=== PATIENT | female | born 1960 | race Caucasian/White ===

== ENCOUNTER 2017-05-26 04:32 | Observation (INO) | payer MEDICARE, OTHER ==
--- NOTE | 2017-05-26 04:40 | ED Physician Documentation ---
PD HPI NVD - Stated complaint Stated Complaint: VOMITING,DIARRHEA - History obtained from History obtained from: Patient - History of Present Illness Timing - onset: How many weeks ago (2 weeks ago (05/12)) Timing - duration: Weeks Timing - details: Gradual onset, Still present, Waxing and waning Pain level max: 6 Pain level now: 2 Associated symptoms: Abdominal pain (waxing and waning cramping abdominal pain, mild at the time of this H+P). No: Fever Contributing factors: Travel. No: Recent antibiotics Improved by: Other (no ameliorating factors) Worsened by: Eating Similar symptoms before: No diagnosis Recently seen: Clinic (evaluated by PMD earlier this week (few days ago; see below)) - Additonal information Additional information: patient recently returned from a three-week trip to [place]. 2 weeks ago , while still on her trip, she developed diarrhea associated with abdominal cramping; this gradually but steadily worsened. she had mild bouts of nausea shortly before flying back home which was controlled with zofran and subsequently resolved until tonight. She saw PMD earlier this week for the ongoing diarrhea and abdominal cramping. Testing included hepatitis A (result was negative), and stool sample (results pending). She presents at this time due to sudden onset of severe nausea and vomiting since 10 PM. She did not try the zofran because she has been unable to keep even sips of liquids down. She has a generalized headache and feels generalized weakness. She continues to have frequent liquid stools and abdominal cramping Review of Systems Constitutional: denies: Fever, Chills, Sweats Eyes: reports: Reviewed and negative Ears: reports: Reviewed and negative Nose: reports: Reviewed and negative Throat: reports: Reviewed and negative Cardiac: reports: Reviewed and negative Respiratory: reports: Reviewed and negative GI: reports: Abdominal Pain, Nausea, Vomiting, Diarrhea. denies: Abdominal Swelling, Constipation, Hematemesis, Bloody / black stool : denies: Dysuria, Frequency Skin: reports: Reviewed and negative Musculoskeletal: reports: Reviewed and negative Neurologic: reports: Generalized weakness, Headache. denies: Focal weakness, Numbness PD PAST MEDICAL HISTORY - Past Medical History Past Medical History: Yes Cardiovascular: High cholesterol - Past Surgical History Past Surgical History: Yes - Allergies Allergies/Adverse Reactions: Allergies Allergy/AdvReac Type Severity Reaction Status Date / Time domperidone AdvReac Nausea Verified 05/26/17 04:46 dopamine AdvReac Nausea Verified 05/26/17 04:47 methylphenidate AdvReac DEPRESSION Verified 05/26/17 04:49 [From Ritalin] metoclopramide [From Reglan] AdvReac DEPRESSION Verified 05/26/17 04:49 modafinil [From Provigil] AdvReac Unknown Verified 05/26/17 04:48 prochlorperazine AdvReac Unknown Verified 05/26/17 04:49 [From Compazine] topiramate [From Topamax] AdvReac Nausea Verified 05/26/17 04:47 - Living Situation Living Arrangement: reports: At home - Social History Does the pt smoke?: No PD ED PE NORMAL - Vitals Vital signs reviewed: Yes - General General: Alert and oriented X 3, Well developed/nourished, Other (marked generalized tremulousness (patient says this is not a new problem)) - HEENT HEENT: Other (dry mucous membranes) - Neck Neck: Supple, no meningeal sign - Cardiac Cardiac: No murmur, No gallop, No rub - Respiratory Respiratory: No respiratory distress, Clear bilaterally - Abdomen Abdomen: Soft, Non tender, Non distended, Other (hyperactive bowel sounds) - Back Back: No CVA TTP - Derm Derm: Normal color, Warm and dry - Extremities Extremities: No edema - Neuro Neuro: Alert and oriented X 3 PD ED PE EXPANDED - Cardiac Cardiac: Tachy, Regular Rhythm Results - Vitals Vitals: Vital Signs - 24 hr 05/26/17 05/26/17 05/26/17 04:40 05:52 07:37 Temperature 36.4 C L 36.9 C Heart Rate 144 H 99 105 H Respiratory 24 18 15 Rate Blood Pressure 124/99 H 113/69 O2 Saturation 98 97 100 Oxygen O2 Source Room air - Labs Labs: Laboratory Tests 05/26/17 05/26/17 05/26/17 04:49 04:49 05:30 WBC 17.2 H RBC 4.26 Hgb 13.7 Hct 39.7 MCV 93.2 MCH 32.2 H MCHC 34.6 RDW 12.2 Plt Count 389 MPV 8.2 Neut # 16.1 H Lymph # 0.5 L Schuyler # 0.6 Eos # 0.1 Baso # 0.0 Absolute Nucleated RBC 0.01 Nucleated RBC % 0.0 Sodium 136 Potassium 3.3 L Chloride 102 Carbon Dioxide 22 Anion Gap 12.0 BUN 8 Creatinine 0.9 Estimated GFR (MDRD) 64 L Glucose 124 H Calcium 8.8 Total Bilirubin 0.6 AST 30 ALT 15 Alkaline Phosphatase 89 Total Protein 7.8 Albumin 4.1 Globulin 3.7 Albumin/Globulin Ratio 1.1 Lipase 53 H Urine Color YELLOW Urine Clarity CLEAR Urine pH 8.5 H Ur Specific [place] 1.010 Urine Protein NEGATIVE Urine Glucose (UA) NEGATIVE Urine Ketones 40 H Urine Occult Blood NEGATIVE Urine Nitrite NEGATIVE Urine Bilirubin NEGATIVE Urine Urobilinogen 0.2 (NORMAL) Ur Leukocyte Esterase NEGATIVE Ur Microscopic Review NOT INDICATED Urine Culture Comments NOT INDICATED PD MEDICAL DECISION MAKING - ED course Complexity details: reviewed results, re-evaluated patient, considered differential, d/w patient ED course: reevaluated multiple times during ED stay; her tremulousness improved dramatically early in her stay (again, this is not a new problem for her and she has had extensive w/u in the past for this). She appeared more comfortable after IV fluids and zofran, and she reported feeling better. However, she continued to have severe nausea and felt she was about to vomit each time I reevaluated her, including after a second liter of IV fluids and second dose of zofran. She was able to take ice chips and one tablet of lomotil, but she also continued to have frequent, loose, watery stools throughout ED stay. She likely would not be able to stay adequately hydrated if sent home, based on ongoing lower GI loses and inadequate PO intake due to ongoing nausea, and thus admitted for further treatment. Her abdominal exam remained benign during ED stay. Her allergies/adverse reaction list includes reglan and compazine. Departure - Departure Disposition: ED Place in Observation Clinical Impression: Gastroenteritis Condition: Stable Discharge Date/Time: 05/26/17 08:53
[2017-05-26] MEDS ORDERED: ONDANSETRON 4 MG/2 ML VIAL IVP STA ×2 (05:02→06:43)
[2017-05-26] MEDS ORDERED: SODIUM CHLORIDE 0.9% 1,000 ML IV STA ×2 (05:02→06:43)
[2017-05-26 05:13] LABS: BASOPHILS % (AUTO) 0.1 %; EOSINOPHILS # (AUTO) 0.1 10^3/uL (0.0-0.7); EOSINOPHILS % (AUTO) 0.5 %; HGB - HEMOGLOBIN 13.7 g/dL (12.0-16.0); LYMPHOCYTES # (AUTO) 0.5 10^3/uL (1.5-3.5); LYMPHOCYTES % (AUTO) 2.7 %; MEAN CORPUSCULAR HEMOGLOBIN 32.2 pg (27.0-31.0); MEAN CORPUSCULAR HGB CONC 34.6 g/dL (32.0-36.0); MEAN CORPUSCULAR VOLUME 93.2 fL (81.0-99.0); MEAN PLATELET VOLUME 8.2 fL (7.9-10.8); MONOCYTES # (AUTO) 0.6 10^3/uL (0.0-1.0); MONOCYTES % (AUTO) 3.5 %; NEUTROPHILS # (AUTO) 16.1 10^3/uL (1.5-6.6); NEUTROPHILS % (AUTO) 93.2 %; PLT - PLATELET COUNT 389 10^3/uL (130-450); RED BLOOD COUNT 4.26 10^6/uL (4.20-5.40); RED CELL DISTRIBUTION WIDTH 12.2 % (12.0-15.0); WHITE BLOOD COUNT 17.2 x10^3/uL (4.8-10.8)
[2017-05-26 05:33] LABS: ALBUMIN 4.1 g/dL (3.2-5.5); ALBUMIN/GLOBULIN RATIO 1.1 (1.0-2.2); BILIRUBIN,TOTAL 0.6 mg/dL (0.2-1.0); CALCIUM 8.8 mg/dL (8.5-10.3); CREATININE 0.9 mg/dL (0.4-1.0); TOTAL PROTEIN 7.8 g/dL (6.7-8.2)
[2017-05-26 05:40] LABS: BILIRUBIN,URINE NEGATIVE (NEGATIVE); GLUCOSE, URINE (UA) NEGATIVE (NEGATIVE); KETONES,URINE (UA) 40 mg/dL (NEGATIVE); LEUKOCYTE ESTERASE, URINE NEGATIVE (NEGATIVE); NITRITE,URINE NEGATIVE (NEGATIVE); OCCULT BLOOD,URINE NEGATIVE (NEGATIVE); PH,URINE 8.5 PH (5.0-7.5); PROTEIN,URINE NEGATIVE (NEGATIVE); UROBILINOGEN,URINE 0.2 (NORMAL) E.U./dL (NORMAL)
[2017-05-26 05:44] LABS: CLARITY,URINE CLEAR (CLEAR)
[2017-05-26] MEDS ORDERED: DIPHENOX/ATROPINE 2.5/0.025 MG TABLET PO STA (06:43)
[2017-05-26] MEDS ORDERED: SODIUM CHLORIDE FLUSH 0.9% 10 ML SYRINGE IVP PRN (08:06)
[2017-05-26] MEDS ORDERED: ONDANSETRON ODT 4 MG TABLET TL PRN (08:06)
[2017-05-26] MEDS ORDERED: DIPHENOX/ATROPINE 2.5/0.025 MG TABLET PO PRN (08:08)
[2017-05-26] MEDS ORDERED: POLYETHYLENE GLYCOL 3350 17 GM PACKET PO SCH (09:00)
[2017-05-26] MEDS: PANTOPRAZOLE 40 MG VIAL IVP SCH ×2 (09:37→16:05)
[2017-05-26] MEDS: DEXTROSE 5%-0.9% NACL 1,000 ML IV SCH ×2 (09:37→19:13)
[2017-05-26] MEDS ORDERED: CHOLESTYRAMINE 4 GM PACKET PO SCH (11:00)
[2017-05-26] MEDS: ONDANSETRON 4 MG/2 ML VIAL IVP PRN ×2 (13:10→23:50)
[2017-05-26] MEDS: ACETAMINOPHEN 325 MG TABLET PO PRN ×2 (13:10→23:49)
[2017-05-26] MEDS: SODIUM CHLORIDE FLUSH 0.9% 10 ML SYRINGE IVP SCH (16:05)
[2017-05-26] MEDS: oxyCODONE 5 MG TABLET PO PRN ×2 (16:05→19:33)
[2017-05-26] MEDS ORDERED: LIDOCAINE PATCH 5% TOP PRN (16:17)
[2017-05-26] MEDS ORDERED: PROMETHAZINE INJ 25 MG in SODIUM CHLORIDE 0.9% 50 ML IV PRN (16:17)
[2017-05-26] MEDS: CYCLOBENZAPRINE 10 MG TABLET PO SCH ×2 (16:44→21:11)
[2017-05-26] MEDS ORDERED: ACETAMINOPHEN 1,000 MG/100 ML 100 ML IV PRN (19:12)
[2017-05-26] MEDS ORDERED: clonazePAM 0.5 MG TABLET PO SCH (22:00)
[2017-05-26] MEDS ORDERED: PRIMIDONE 50 MG TABLET PO SCH (22:00)
[2017-05-26] MEDS ORDERED: buPROPion SR 100 MG TABLET PO SCH (22:00)
[2017-05-27] MEDS: SODIUM CHLORIDE FLUSH 0.9% 10 ML SYRINGE IVP SCH ×2 (06:02→06:12)
[2017-05-27] MEDS: PANTOPRAZOLE 40 MG VIAL IVP SCH (06:12)
[2017-05-27] MEDS: ONDANSETRON 4 MG/2 ML VIAL IVP PRN (06:12)
[2017-05-27] MEDS: DEXTROSE 5%-0.9% NACL 1,000 ML IV SCH (06:13)
[2017-05-27] MEDS: ACETAMINOPHEN 325 MG TABLET PO PRN (06:13)
--- NOTE | 2017-05-27 09:04 | Discharge Plan ---
Discharge Plan Disposition: 01 Home, Self Care Condition: Stable Diet: Regular Activity Restrictions: Activity as Tolerated Shower Restrictions: No Driving Restrictions: No Additional Instructions or Follow Up instructions: You were placed in observation here at [facility] because of intractable nausea and vomiting with severe diarrhea. Your history is that of recent travel to [place] and we do believe you have traveler's diarrhea. It has been going on for over 2 weeks, if not 3 weeks, and you were dehydrated, weak, and having severe abdominal cramping. Nausea and vomitting had been present for a week and was nonstop since the night before beeing seen in the ER here. Our stool study shows you to be negative for Clostridium difficile. After 24 hours of stay, you have not had any further episodes of vomiting. Your nausea is now completely gone. And you only had 1 bowel movement while here. You have tolerated a regular breakfast. We feel you are stable to return to home. You already have Zofran tablets at home and do not need a new prescription for those. Please follow-up with your primary care provider, Carter Franklin MD. You can do that in the next 1-2 weeks. No Smoking: If you smoke, Please STOP! Call for help. Follow-up with: Carter Franklin MD [Other]
[2017-05-27 09:43] VITALS: BP 110/65
[2017-05-27] MEDS ORDERED: DULoxetine 30 MG CAPSULE PO SCH (10:00)
--- NOTE | 2017-05-28 09:30 | HISTORY & PHYSICAL EXAMINATION ---
DATE OF SERVICE: 05/26/2017 Physician: Olga Plummer MD PRIMARY CARE PHYSICIAN: Carter Franklin MD, Primary Care Clinic - [facility]; FAX number ([phone]); office number ([phone]). ADMITTING PROVIDER: Olga Plummer MD CHIEF COMPLAINT: Intractable nausea and vomiting, associated with diarrhea. HISTORY OF PRESENT ILLNESS: The patient is a 57-year-old female who has been living on [facility] since approximately May 2007. She gets all of her primary care at [facility] because of very complicated and rare disease status. She has an essential tremor that has been getting gradually worse. Initially, it presented in the right jaw and has now progressed to the right side of her body and now on the left side of her body. Between the tremors, fibromyalgia, and chronic arthritis pain, she is physically diminished with regard to activities of daily living. However, she gets quite a bit of help in that she lives with 2 sisters and her mom. She is the "brains of the operation" in that she does all of the bookkeeping, household planning, organizing of household repairs while her sisters do the brunt of the physical labor, including gardening, cleaning, etc. She went to [place] 3 weeks ago. A week into the vacation, she developed watery diarrhea. It was daily and several times a day but no fever, chills, blood in her stool. There was no abdominal pain, and she was able to eat. This went on for 2 more weeks as the vacation was a total of 3 weeks long. The day before she returned back to the [place], she started getting light nausea. By the time she landed, the nausea had progressed to nausea and vomiting. The diarrhea got worse, and it is associated with severe abdominal cramping. In between bowel movements, she is pain-free, but she can feel an urge to defecate coming. The cramping is intense. She breaks out into a sweat, and the intractable nausea and vomiting is continued. She was seen by her primary care provider, and stool studies were done. These were done at . I have tried calling medical records, and they say that they have no stool studies for her in the last week. PCP did do some blood work on her, and she is hepatitis A negative. This morning, between the cramping and the nausea and vomiting that was nonstop starting at 10 o'clock last night, she could not take it anymore. She was brought to the emergency room where Dr. Cheema has given her 2 liters of saline, Zofran, and one Lomotil. It has helped somewhat, but every time he has gone in to reevaluate her, she is holding that "emesis blue bag" in her face. He feels that she cannot go home yet and would need at least an observation stay to control her symptomatology. PAST MEDICAL HISTORY 1. Chronic pain syndrome. She last worked in February 2006. 2. Fibromyalgia. 3. Essential tremors that have been progressive and getting worse. She does Botox especially for the right jaw tremors. 4. G3, P3, all vaginal deliveries. 5. 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 She ended up undergoing Gamma Knife resection. 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 In August 2016, she had a sudden inability to read one day. She was trying to follow a recipe for upside-down pineapple cake and just could not do it. As the day progressed, she started developing left facial droop. Final diagnosis was recurrence of the paraganglioma. She is currently being evaluated to see if she is a candidate for surgical resection again. 7. Status post cholecystectomy. 8. 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 ALLERGIES SHE IS ALLERGIC TO: 1, SINEMET, WHICH CAUSES NAUSEA. 2. DOMPERIDONE CAUSES NAUSEA. 3. TOPAMAX CAUSES NAUSEA. 4. RITALIN CAUSES DEPRESSION. 5. REGLAN CAUSES DEPRESSION. 6. PROVIGIL, SHE DOES NOT LIKE. 7. COMPAZINE, SHE DOES NOT LIKE. MEDICATIONS 1. Aspirin 81 mg a day. 2. Atorvastatin 40 mg a day. 3. Bupropion hydrochloride sustained release 100 mg a day. 4. Clonazepam 1 mg b.i.d. 5. Flexeril 10 mg twice a day. 6. Restasis 1 drop each eye daily. 7. Cymbalta 60 mg daily. 8. Lidoderm patch 1 topically daily. 9. Prilosec 20 mg daily. 10. Primidone 125 mg twice a day. 11. Metamucil 1 packet daily. SOCIAL HISTORY: She was born in [place] and had most of her adult life there. 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. 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 She finished her career with that job, and she loved it. She was visiting her sister in [place], [place], in 2007 and loved [place]. Eventually, she and her sisters and their mom ended up on [facility] in May 2007. She subsequently her because of alcohol abuse issues on his part. She has been on disability because of her chronic pain syndrome and tremors since 2005. She has never smoked, rarely drinks. Two of her children are in [place], and one son is in [place]. She occasionally uses cannabis. She has no history of cocaine, heroin, LSD, methamphetamine abuse. She and her sisters live with their mom in the same house. One sister does live down the road 7 minutes away. As a family unit, they are very supportive. Each person is responsible for certain aspects of household upkeep. As already stated, the patient is "the brains of the operation." FAMILY HISTORY: Mom is 87 and healthy. She has had a stroke in the past, but overall she is doing very well. Dad of COPD complications at the age of 75. Three sisters. One has an essential tremor, but all of them are healthy. Her 3 children are healthy, except 2 have essential tremor. One aunt has tremor, 2 cousins have tremor, and a second cousin has tremors. REVIEW OF SYSTEMS CONSTITUTIONAL: She has no constitutional complaints of unexpected weight changes, fevers, sweats, etc. HEENT: She wears glasses but has no history of glaucoma or cataracts. Hearing is intact. Occasionally, she has been having some swallowing and choking problems, and they wonder if it is related to her tremors. PULMONARY: Denies coughing, wheezing, chest pain, congestion, decreased endurance. CARDIAC: Denies chest pain, edema, orthopnea. GI: Occasionally constipated but the diarrhea as above. : None. No incontinence. No dysuria. No hematuria. MUSCULOSKELETAL: Diffuse myalgias and arthralgias from her arthritis, especially in her hands, as well as fibromyalgia. No change in disease status. SKIN: Denies rashes, new moles, new lesions. PSYCHIATRIC: Depression and anxiety are a daily part of her life. She worries about the future, especially with this new diagnosis of the paraganglioma, but more than anything else, she worries about her children's future. The paraganglioma is associated with a certain genetic defect, and she is worried that her children will have inherited it and she worries about them. 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 No history of seizures, syncope. Memory has been good in spite of her body strength being bad. PHYSICAL EXAMINATION VITAL SIGNS: On examination, she is seen in her room after being transferred there from the emergency room. Temperature is 36.5. Pulse is 95, blood pressure 117/74, respirations 16, and 96% on room air. When she presented to the emergency room, she was mildly hypothermic at 36.4, a heart rate of 144, and a blood pressure of 124/99. GENERAL: She is a pleasant middle-aged female, wearing glasses, well-nourished , lying quietly in her bed, but during the exam definitely overcome with waves of nausea, causing her to reach for the blue emesis bag. HEAD AND NECK: Unremarkable, other than the glasses. Pupils are reactive. She has very dry lips that are cracked, oral mucosa that is quite dry and parched. She is constantly trying to attempt to lick her lips, but there is no saliva present. Speech is slightly hoarse. She says that if she talks for too long, her voice will break and it comes and goes and this is related to the tremor. Neck is supple. No meningismus. No goiter. No bruits. She has some deformity of the left side of her head from previous surgical resection or treatment. LUNGS: Clear to auscultation and percussion. HEART: PMI is normally placed with a regular rate and rhythm. No murmur. ABDOMEN: Soft, vaguely achy, but essentially nontender. Borborygmi are evident. No rebound, no guarding, no masses. EXTREMITIES: Warm. She has no clubbing, cyanosis or edema. Calf muscles are soft, My's negative. NEUROLOGIC: She is alert and oriented to person, place and time. She is a lucid historian who can follow commands. Cranial nerve exam with one not tested shows left facial droop that is very subtle. Voice is cracking. There is no right arm or right leg weakness, but she definitely has resting tremors, right hand slightly so and the right foot, but strength is normal. LABORATORY DATA: Sodium 136, potassium 3.3, random glucose 124. Liver enzymes normal. White cell count 17.2, hemoglobin 13.7, hematocrit 39.7, platelets 389. Urinalysis has a pH of 8.5, ketonuria, but otherwise negative. C difficile negative stool. ASSESSMENT/PLAN 1. Intractable nausea and vomiting from #2. She will be placed in observation. ATTESTATION that the patient will be admitted for less than 96 hours. At 96 hours, she will be assessed for discharge or transfer. This diarrhea is abrupt in onset, associated with travel. No fever, no chills, no blood in the stool. It could also be norovirus as she has traveled in multiple public spaces. PLAN IV fluids with 0.9 normal saline at 125 mL an hour for rehydration. Antiemetics in the form of Zofran and Phenergan. SHE IS ALLERGIC TO COMPAZINE AND REGLAN. Attempt to get records from [facility] with her previous stool studies. If not available, we will have to resubmit our own stool studies. She is currently C difficile negative. 2. Gastroenteritis. PLAN: As above. 3. Chronic pain syndrome. I will resume her usual medications and avoid nonessential ones. In other words, I will resume her clonazepam, Flexeril, Cymbalta, Lidoderm patch. Mysoline. Her other medications I will hold at this time to avoid upsetting her stomach even further, so we will not resume her aspirin or Metamucil at this time. 4. FULL CODE STATUS. 5. Deep venous thrombosis prophylaxis will be JHOAN nazario. TD: 05/27/2017 01:[facility]
--- NOTE | 2017-05-28 10:55 | DISCHARGE SUMMARY ---
Physician: Olga Plummer MD DATE OF ADMISSION: 05/26/2017 DATE OF DISCHARGE: 05/27/2017 PRIMARY CARE PHYSICIAN: Dr. Carter Franklin at [facility]; DISCHARGE DIAGNOSES 1. Intractable nausea and vomiting. 2. Gastroenteritis/traveler diarrhea. 3. Chronic pain syndrome. DISCHARGE MEDICATIONS Unchanged from admit medications: 1. Zofran 4 mg sublingual every 6 hours as needed. 2. Aspirin 81 mg a day. 3. Atorvastatin 40 mg a day. 4. Bupropion hydrochloride sustained release 100 mg a day. 5. Clonazepam 1 mg b.i.d. 6. Flexeril 10 mg b.i.d. 7. Restasis eyedrops daily. 8. Cymbalta 60 mg p.o. daily. 9. Lidoderm patch apply topically daily. 10. Prilosec 20 mg p.o. daily. 11. Primidone 125 mg p.o. b.i.d. 12. Metamucil 1 tablet daily. PRINCIPAL PROCEDURES 1. Stool submitted for C difficile toxin and negative. 2. Stool studies not able to be submitted for Campylobacter or Escherichia coli or Giardia or Shigella since the patient had no further diarrhea while here. 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 On the second week she got ill with diarrhea. On the flight home, she noticed that she was starting to get quite nauseated ,and since being home she has had nausea and vomiting, as well as daily diarrhea. She was seen by her primary care provider, Carter Franklin. She has multiple medical problems including a rare form of carotid body tumor. Hepatitis A was negative in his clinic per her reports. 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 She is very knowledgeable about medical affairs. In spite of seeing Dr. Franklin, receiving [id number] medications to help her, she did not improve. Nonstop vomiting started ensuing the night before admission into the night. She came here in the blocker metal base hours of 05/26/2017. She received fluids and Zofran in the emergency room. She did not respond immediately and as such she was placed in observation. While in observation status, her nausea required several injections of Zofran and Phenergan. SHE IS ALLERGIC TO COMPAZINE AND REGLAN. She received 125 mL of normal saline an hour. She did not have any further diarrhea. The nausea gradually abated, as did the dry heaves, and she was able to advance from a clear liquid diet to a full diet on the morning of admission without emesis. She got a good night's sleep of 8 hours, which was wonderful for her. As such, she is now discharged in stable condition and asked to follow up with her primary care provider. We did attempt to verify her stool studies done through his office, but when we contacted Medical Records at [facility], they said they had no stool studies for her at all. PHYSICAL EXAMINATION: Temperature at discharge was 36.7, heart rate 72, blood pressure 110/65, respirations 19, 98% on room air. She is a peace, middle-aged female who looks her stated age. She has a very subtle left facial droop at the lips from previous carotid body surgery. Left side of face is subtly deformed from it. Lungs are clear to auscultation and percussion. PMI is normally placed with a regular rate and rhythm. Abdomen had initially hyperactive bowel sounds and they are now normal. Nontender. No rebound or guarding. Extremities are warm without clubbing, cyanosis, or edema. She has a right-hand and right-foot tremor. cc: Carter Franklin MD TD: 05/27/2017 12:54
== END 2017-05-27 09:55 | disposition home or self-care (01) ==
LOC: ED 04:32 → OBS 08:06
PROVIDERS: ADMIT Specialist; ATTEND Specialist
DX: K52.9 Noninfective gastroenteritis and colitis, unspecified (principal); E86.0 Dehydration; G89.4 Chronic pain syndrome; D44.6 Neoplasm of uncertain behavior of carotid body; M79.7 Fibromyalgia; G25.0 Essential tremor; M19.90 Unspecified osteoarthritis, unspecified site; E78.00 Pure hypercholesterolemia, unspecified; F32.9 Major depressive disorder, single episode, unspecified; F41.9 Anxiety disorder, unspecified; Z90.49 Acquired absence of other specified parts of digestive tract; Z88.8 Allergy status to other drugs, medicaments and biological substances; Z86.73 Personal history of transient ischemic attack (TIA), and cerebral infarction without residual deficits; Z79.82 Long term (current) use of aspirin
CPT/HCPCS: 36415; 80053; 81003; 83630; 83690; 85025; 87493; 96361; 96365; 96367; 96375; 96376; 99284; A9270; G0378; J0131; 81001; 87045; 87046; 87081; 87086; 96374; 99283

== ENCOUNTER 2020-10-25 15:13 | Outpatient (CLI) | payer MEDICARE, OTHER ==
[2020-10-25 20:06] LABS: HCT - HEMATOCRIT 33.7 % (37.0-47.0); HGB - HEMOGLOBIN 11.3 g/dL (12.0-16.0); MEAN CORPUSCULAR HEMOGLOBIN 33.9 pg (27.0-31.0); MEAN CORPUSCULAR HGB CONC 33.5 g/dL (32.0-36.0); MEAN CORPUSCULAR VOLUME 101.2 fL (81.0-99.0); MEAN PLATELET VOLUME 10.7 fL (7.9-10.8); RED BLOOD COUNT 3.33 10^6/uL (4.20-5.40); RED CELL DISTRIBUTION WIDTH 12.2 % (12.0-15.0); WHITE BLOOD COUNT 5.1 x10^3/uL (4.8-10.8)
== END 2020-10-25 15:14 | disposition home or self-care (01) ==
LOC: LAB.S 15:13
PROVIDERS: ATTEND Internal Medicine Gastroenterology
DX: D50.9 Iron deficiency anemia, unspecified (principal)
CPT/HCPCS: 36415; 82728; 85027